=== PATIENT | male | born 1925 | race Caucasian/White ===

== ENCOUNTER → 2016-05-20 | Outpatient (CLI) | payer OTHER ==
[~2016-05-20] MED LIST: ATOR-26 PO; METO25TA56 PO; VITAMIN B12 PO
--- NOTE | 2016-05-20 15:05 | DIAGNOSTIC IMAGING REPORT ---
KUB HISTORY: R31.9 [id number] COMPARISON: KUB 09/23/2015. FINDINGS: The bowel gas pattern is unremarkable. There are no dilated loops of small bowel to suggest an obstruction. Levoscoliosis of the lumbar spine. No ureteral or bladder calculi identified. Stable pelvic phleboliths are again noted. Stable bilateral nephrolithiasis. Dominant stone within the left kidney measures 5 mm. No pneumoperitoneum or pneumatosis. IMPRESSION: Stable bilateral nephrolithiasis. Electronically signed by: Bneton Mendoza M.D. 05/20/2016 3:03 PM Dictated Date/Time: 05/20/2016 3:02 PM
== END ==
LOC: C.RAD 14:15
PROVIDERS: ATTEND Urology
DX: R31.9 Hematuria, unspecified (principal)

== ENCOUNTER 2016-11-05 11:56 | Emergency (ER) | payer OTHER ==
[~2016-11-05] VITALS: Ht 175.3 cm; Wt 66.6 kg
[2016-11-05 12:00] VITALS: Ht 175.3 cm; Wt 66.6 kg
[2016-11-05 12:42] VITALS: TEMP 37.1
[2016-11-05] MEDS ORDERED: METO25TA56 PO (12:44)
[2016-11-05] MEDS ORDERED: ACETAMINOPHEN 325 MG TAB PO STA (13:29)
--- NOTE | 2016-11-05 13:42 | DIAGNOSTIC IMAGING REPORT ---
RIGHT HAND 3 VIEWS HISTORY: right hand pain swelling COMPARISON: None. FINDINGS: Suboptimal study due to patient positioning. No acute fracture or dislocation within the right hand. Chondrocalcinosis within the wrist. Mild soft tissue swelling within the hand and wrist. No cortical destruction to suggest osteomyelitis. Moderate osteoarthritis within the DIP, PIP, and carpal bones. 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 No radiopaque foreign bodies. IMPRESSION: 1. No acute fracture or dislocation within the right hand. 2. Soft tissue swelling within the hand and wrist. 3. Moderate to severe osteoarthritis as described above. 4. Chondrocalcinosis within the wrist. Electronically signed by: Benton Mendoza M.D. 11/05/2016 1:40 PM Dictated Date/Time: 11/05/2016 1:38 PM
[2016-11-05 14:22] LABS: BASO % 0.2 %; BASO ABS # 0.02 K/uL (0-0.2); COMPLETE YES; EOS % 1.6 %; HEMATOCRIT 48.6 % (42-52); IG% 0.2 %; LYMPH % 13.8 %; LYMPH ABS # 1.34 K/uL (1.2-3.4); MEAN CELL VOLUME 96.6 fL (80-100); MEAN CORPUSCULAR HEMOGLOBIN 31.2 pg (25-34); MEAN CORPUSCULAR HGB CONC 32.3 g/dl (32-36); MEAN PLATELET VOLUME 12.2 fL (7.4-10.4); MONO % 10.6 %; NEUT % 73.6 %; PLATELET COUNT 185 K/uL (130-400); RED BLOOD COUNT 5.03 M/uL (4.7-6.1); WHITE BLOOD COUNT 9.72 K/uL (4.8-10.8)
[2016-11-05 14:28] LABS: CREATININE 1.1 mg/dl (0.60-1.40); POTASSIUM 3.8 mmol/L (3.5-5.1); URIC ACID 5.5 mg/dl (2.6-7.2)
[2016-11-05 14:35] LABS: PROTHROMBIN TIME (PATIENT) 11.2 SECONDS (9.0-12.0)
--- NOTE | 2016-11-05 15:29 | DIAGNOSTIC IMAGING REPORT ---
RIGHT UPPER EXTREMITY VENOUS DOPPLER HISTORY: pain/swelling, right arm COMPARISON STUDY: None. FINDINGS: The right internal jugular vein is patent. There is normal flow within the right subclavian vein. There is normal flow and compressibility within the right axillary, basilic, brachial, radial, ulnar, and visualized cephalic veins. Of note, the cephalic vein appears hypoplastic. IMPRESSION: No DVT within the right upper extremity. Electronically signed by: Benton Mendoza M.D. 11/05/2016 3:28 PM Dictated Date/Time: 11/05/2016 3:27 PM
[2016-11-05] MEDS ORDERED: IBUPROFEN 600 MG TAB PO STA (15:42)
--- NOTE | 2016-11-05 15:48 | EMERGENCY ROOM VISIT NOTE ---
History Report prepared by Jef: Johnathan Hitchcock Under the Supervision of: Dr. Triny Sosa D.O. First contact with patient: 13:01 Chief Complaint: HAND PAIN/INJURY Stated Complaint: R HAND SWELLING History of Present Illness The patient is a 89 year old male who presents to the Emergency Room with complaints of constant right hand pain and swelling beginning yesterday. He denies any known trauma. His pain is worsened with moving his hand. The patient notes that he had a stroke last year, and has had some right hand motor and sensory deficit ever since. He is on aspirin, but denies taking any other blood thinners. He denies any leg swelling, or fevers. The patient denies any changes to his daily routine. Source of History: patient Onset: Yesterday Position: hand (right) Quality: other (pain and swelling) Timing: constant Modifying Factors (Worsening): movement (of the right hand) Associated Symptoms: No fevers Note: The patient denies any leg swelling. Review of Systems See HPI for pertinent positives & negatives. A total of 10 systems reviewed and were otherwise negative. Past Medical & Surgical Medical Problems: (1) Appendectomy (2) Benign hypertension (3) Carpal tunnel syndrome (4) CVA (cerebral vascular accident) (5) Kidney stones (6) Rotator cuff surgery (7) Spinal stenosis Family History Patient reports no known family medical history. Social History Smoking Status: Current Every Day Smoker Alcohol Use: occasionally Marital Status: Housing Status: lives alone Occupation Status: retired Current/Historical Medications Scheduled Atorvastatin (Lipitor), 80 MG PO HS Metoprolol Tartrate (Lopressor) (Lopressor), 12.5 MG PO BID [Vitamin B12], 1 TAB PO DAILY Allergies Coded Allergies: No Known Allergies (Verified , 11/05/16) Physical Exam Vital Signs Date Time Temp Pulse Resp B/P (MAP) Pulse Ox O2 Delivery O2 Flow Rate FiO2 11/05/16 16:16 11/05/16 16:15 11/05/16 16:00 72 20 158/88 99 Room Air 11/05/16 15:00 78 20 178/88 99 Room Air 11/05/16 14:00 78 20 146/87 97 Room Air 11/05/16 12:42 37.1 87 20 185/122 93 Room Air 11/05/16 12:00 36.6 77 18 188/71 97 Room Air Physical Exam GENERAL: alert, well appearing, well nourished, no distress, non-toxic EYE EXAM: normal conjunctiva, PERRL and EOM's grossly intact OROPHARYNX: no exudate, no erythema, lips, buccal mucosa, and tongue normal and mucous membranes are moist NECK: supple, no nuchal rigidity, no adenopathy, non-tender LUNGS: Clear to auscultation. Normal chest wall mechanics HEART: no murmurs, S1 normal and S2 normal ABDOMEN: abdomen soft, non-tender, normo-active bowel sounds, no masses, no rebound or guarding. BACK: Back is symmetrical on inspection and there is no deformity, no midline tenderness, no CVA tenderness. SKIN: no rashes and no bruising UPPER EXTREMITIES: Tenderness to the mid right forearm worsening with distal progression. Right hand is diffusely swollen. Decreased ROM secondary to pain. Sensation intact. Normal pulse. Good cap refill. No obvious deformity or injury. Pain with palpation the hand. No other pain along the RUE. LOWER EXTREMITIES: No pitting edema. NEURO EXAM: Normal sensorium, cranial nerves II-XII grossly intact, normal speech, no gross weakness of arms, no gross weakness of legs. Medical Decision & Procedures ER Provider Diagnostic Interpretation: Radiology results have been interpreted by the radiologist and reviewed by me. RIGHT UPPER EXTREMITY VENOUS DOPPLER FINDINGS: The right internal jugular vein is patent. There is normal flow within the right subclavian vein. There is normal flow and compressibility within the right axillary, basilic, brachial, radial, ulnar, and visualized cephalic veins. Of note, the cephalic vein appears hypoplastic. IMPRESSION: No DVT within the right upper extremity. Electronically signed by: Benton Mendoza M.D. 11/05/2016 3:28 PM RIGHT HAND 3 VIEWS FINDINGS: Suboptimal study due to patient positioning. No acute fracture or dislocation within the right hand. Chondrocalcinosis within the wrist. Mild soft tissue swelling within the hand and wrist. No cortical destruction to suggest osteomyelitis. Moderate osteoarthritis within the DIP, PIP, and carpal bones. 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 No radiopaque foreign bodies. IMPRESSION: 1. No acute fracture or dislocation within the right hand. 2. Soft tissue swelling within the hand and wrist. 3. Moderate to severe osteoarthritis as described above. 4. Chondrocalcinosis within the wrist. Electronically signed by: Benton Mendoza M.D. 11/05/2016 1:40 PM Laboratory Results 11/05/16 13:45 Red Blood Count 5.03, Mean Corpuscular Volume 96.6, Mean Corpuscular Hemoglobin 31.2, Mean Corpuscular Hemoglobin Concent 32.3, Mean Platelet Volume 12.2, Neutrophils (%) (Auto) 73.6, Lymphocytes (%) (Auto) 13.8, Monocytes (%) (Auto) 10.6, Eosinophils (%) (Auto) 1.6, Basophils (%) (Auto) 0.2, Neutrophils # (Auto ) 7.15, Lymphocytes # (Auto) 1.34, Monocytes # (Auto) 1.03, Eosinophils # (Auto ) 0.16, Basophils # (Auto) 0.02 11/05/16 13:45 Test 11/05/16 13:45 White Blood Count 9.72 K/uL (4.8-10.8) Red Blood Count 5.03 M/uL (4.7-6.1) Hemoglobin 15.7 g/dL (14.0-18.0) Hematocrit 48.6 % (42-52) Mean Corpuscular Volume 96.6 fL (80-100) Mean Corpuscular Hemoglobin 31.2 pg (25-34) Mean Corpuscular Hemoglobin Concent 32.3 g/dl (32-36) Platelet Count 185 K/uL (130-400) Mean Platelet Volume 12.2 fL (7.4-10.4) Neutrophils (%) (Auto) 73.6 % Lymphocytes (%) (Auto) 13.8 % Monocytes (%) (Auto) 10.6 % Eosinophils (%) (Auto) 1.6 % Basophils (%) (Auto) 0.2 % Neutrophils # (Auto) 7.15 K/uL (1.4-6.5) Lymphocytes # (Auto) 1.34 K/uL (1.2-3.4) Monocytes # (Auto) 1.03 K/uL (0.11-0.59) Eosinophils # (Auto) 0.16 K/uL (0-0.5) Basophils # (Auto) 0.02 K/uL (0-0.2) RDW Standard Deviation 52.0 fL (36.4-46.3) RDW Coefficient of Variation 14.8 % (11.5-14.5) Immature Granulocyte % (Auto) 0.2 % Immature Granulocyte # (Auto) 0.02 K/uL (0.00-0.02) Prothrombin Time 11.2 SECONDS (9.0-12.0) Prothromb Time International Ratio 1.0 (0.9-1.1) Anion Gap 8.0 mmol/L (3-11) Est Creatinine Clear Calc Drug Dose 42.9 ml/min Estimated GFR () 68.6 Estimated GFR (Non- 59.2 BUN/Creatinine Ratio 10.0 (10-20) Uric Acid 5.5 mg/dl (2.6-7.2) Calcium Level 9.0 mg/dl (8.5-10.1) Laboratory results per my review. Medications Administered Medications (Trade) Dose Ordered Sig/Marta Route Start Time Stop Time Status Last Admin Dose Admin Acetaminophen (Tylenol Tab) 650 mg NOW STAT PO 11/05/16 13:29 11/05/16 13:31 DC 11/05/16 13:39 650 MG Ibuprofen (Motrin Tab) 600 mg NOW STAT PO 11/05/16 15:42 11/05/16 15:44 DC 11/05/16 16:12 600 MG ED Course 1314: The patient was evaluated in room B4B. A complete history and physical exam was performed. 1329: Ordered Tylenol Tab 650 mg PO. 1542: Ordered Motrin Tab 600 mg PO. 1538: I checked in on the patient. He is comfortable. 1615: Upon reevaluation, the patient is feeling better. I discussed the findings and the treatment plan with the patient. He verbalizes agreement and understanding. He was discharged home. Medical Decision Differential diagnosis includes but is not limited to: trauma, fracture, gout, lymphedema, DVT, and cellulitis. Patient well-appearing here despite complaints. Right hand and right upper extremity previously of affected by prior stroke, however patient never had pain or swelling. Patient still has some function although has been limited to prior stroke, now limited more secondary to pain. Discussed with patient use of [id number] pain medications here. Sister spoke with me separately outside the room and said she is concerned that he occasionally will drink alcohol and that he may have injured his hand as a result of intoxication. Patient currently not clinically intoxicated, no smell of alcohol, and he denies any recent injury. Discussed with patient close follow up with family doctor in the symptoms persist follow-up with orthopedics or hand specialist. Discussed elevating right upper extremity when seated and at rest to help minimize swelling. Patient offered a sling but he declined. Discussed with patient symptoms to watch and return for, he verbalized understanding was agreeable with plan. Discussed with patient all results at bedside, including findings of significant arthritis likely secondary to age and right hand dominance. Doubt occult infectious etiology, compartment syndrome, no evidence of DVT or gout, no evidence of fracture dislocation. Medication Reconcilliation Current Medication List: was personally reviewed by me Blood Pressure Screening Patient's blood pressure: Elevated blood pressure Blood pressure disposition: Referred to PCP Impression Primary Impression: Hand pain Additional Impression: Hand edema Scribe Attestation The scribe's documentation has been prepared under my direction and personally reviewed by me in its entirety. I confirm that the note above accurately reflects all work, treatment, procedures, and medical decision making performed by me. Departure Information Dispostion Home / Self-Care Referrals John Browne M.D. (PCP) Patient Instructions My [facility] Additional Instructions Please follow up with your family doctor. Please continue regular medications as prescribed. You may use Tylenol or ibuprofen as directed on the bottle to help with any additional pain. Please elevate the hand to the level of the heart to help minimize swelling. If the swelling or pain comes worse, you notice redness/rashes/sores on the hand, develop worsening numbness or tingling , noticed additional discoloration, have any pain further up the arm, develop fevers, or you have other new concerns, please return the emergency room. Problem Qualifiers Primary Impression: Hand pain Laterality: right Qualified Codes: M79.641 - Pain in right hand
== END 2016-11-05 16:15 | disposition home or self-care (01) ==
LOC: C.EDB 11:57
DX: M25.541 Pain in joints of right hand (principal); R60.9 Edema, unspecified; I10 Essential (primary) hypertension; M48.00 Spinal stenosis, site unspecified; F17.200 Nicotine dependence, unspecified, uncomplicated; Z86.73 Personal history of transient ischemic attack (TIA), and cerebral infarction without residual deficits; Z87.442 Personal history of urinary calculi; Z98.890 Other specified postprocedural states; Z79.899 Other long term (current) drug therapy